=== PATIENT | female | born 1980 | race Caucasian/White ===

== ENCOUNTER 2018-09-27 15:45 | Emergency (ER) | payer OTHER ==
[~2018-09-27] VITALS: Ht 167.6 cm; Wt 81.6 kg
[~2018-09-27 15:45] MED LIST: TRINESSA1 TAB PO
[2018-09-27] MEDS ORDERED: ALLEGRA ALLERGY60 MG (16:13)
[2018-09-27] MEDS ORDERED: SINGULAIR 10MG10 MG (16:13)
== END 2018-09-27 19:30 | disposition home or self-care (01) ==
LOC: ER 15:45
DX: J01.80 Other acute sinusitis (principal); J03.80 Acute tonsillitis due to other specified organisms

== ENCOUNTER 2022-12-08 19:04 | Emergency (ER) | payer OTHER ==
[~2022-12-08] VITALS: Ht 165.1 cm; Wt 88.5 kg
[~2022-12-08 19:04] MED LIST changes: +ALLEGRA ALLERGY60 MG; +SINGULAIR 10MG10 MG
== END 2022-12-08 20:34 | disposition home or self-care (01) ==
LOC: ER 19:04
DX: M79.672 Pain in left foot (principal)